=== PATIENT | male | born 1970 | race Caucasian/White ===

== ENCOUNTER 2016-11-23 17:14 | Emergency (ER) | payer BC ==
[2016-11-23 17:14] VITALS: O2SAT 100
[2016-11-23 17:23] VITALS: RESP 18; TEMP 98.6
[2016-11-23] MEDS ORDERED: LIDOCAINE HCL 1% MPF SOL ONE (17:32)
[2016-11-23] MEDS ORDERED: TDAP VACCINE 0.5 ML SUS IM ONE (17:33)
[2016-11-23] MEDS: LIDOCAINE HCL 1% MDV SOL SC ONE (17:35)
[2016-11-23] MEDS: TDAP VACCINE 0.5 ML SUS IM ONE (17:50)
[2016-11-23 18:16] VITALS: BP 136/93; PULSE 90
== END 2016-11-23 18:05 | disposition home or self-care (01) ==
LOC: ED 17:14
DX: S61.217A Laceration without foreign body of left little finger without damage to nail, initial encounter (principal)
CPT/HCPCS: 12001; 90715; 99284; J2001; 90471